=== PATIENT | female | born 1955 | race Caucasian/White ===

== ENCOUNTER 2017-02-04 13:01 | Emergency (ER) | payer BC | END 2017-02-04 13:25 | disposition home or self-care (01) | LOC: ER 13:01 | DX: S16.1XXA Strain of muscle, fascia and tendon at neck level, initial encounter (principal); V49.9XXA Car occupant (driver) (passenger) injured in unspecified traffic accident, initial encounter | CPT/HCPCS: 72125; 99284 ==